=== PATIENT | female | born 1940 | race Hispanic/Latino ===

== ENCOUNTER 2020-10-26 10:25 | Emergency (ER) | payer MEDICARE ==
[2020-10-26 11:17] LABS: #Basophils 0.1 10x3/uL (0.0-0.2); #Eosinphils 0.1 10x3/uL (0.0-0.5); #Monocytes 0.5 10x3/uL (0.0-1.1); #Neutrophils 3.4 10x3/uL (1.5-8.4); %Basophils 1.3 % (0.0-2.0); %Eosinophils 1.3 % (0.0-6.0); %Neutrophils 63.8 % (40.0-75.0); Hemoglobin 13.6 g/dL (12.0-15.5); Mean Corpuscular HGB CONC 34.2 g/dL (32.0-36.0); Mean Corpuscular Hemoglobin 31.8 pg (27.0-33.0); Mean Platelet Volume 9.2 fl (7.4-10.4); Platelet Count 142 10x3/uL (150-450); RBC Distribution Width 13.8 % (11.5-14.5); Red Blood Cell (RBC) Count 4.28 10x6/uL (3.90-5.03); White Blood Cell (WBC) Count 5.3 10x3/uL (3.5-10.5)
[2020-10-26 11:27] LABS: ALT (SGPT) 17 U/L (8-55); AST (SGOT) 29 U/L (5-34); Albumin 4.1 g/dL (3.4-4.8); Alkaline Phosphatase 153 U/L (40-110); Anion Gap 18 mmol/L (10-20); BUN (Urea Nitrogen) 25 mg/dL (9.8-20.1); Bilirubin, Total 0.8 mg/dL (0.2-1.2); Calc. Creatinine Clearance 0 mL/min (70-130); Calcium 9.6 mg/dL (7.8-10.44); Carbon Dioxide 26 mmol/L (23-31); Chloride 96 mmol/L (98-107); Globulin 4.6 g/dL (2.4-3.5); Glucose 155 mg/dL (83-110); Potassium 3.9 mmol/L (3.5-5.1); Protein, Total 8.7 g/dL (5.8-8.1); Sodium 136 mmol/L (136-145)
[2020-10-26 13:48] LABS: Bilirubin Neg (Negative); Blood, Urine 50 (Negative); Clarity Cloudy (Clear); Glucose, Urine (Dipstick) 250 mg/dL (Negative); Ketone, Urine 5 mg/dL (Negative); Leukocyte 500 (Negative); Nitrite Negative (Negative); Protein, Urine (Dipstick) 100 mg/dl (Neg-Trace); Specific Gravity, Urine 1.025 (1.002-1.036); Urobilinogen Normal mg/dL (Less than 2)
[2020-10-26] MEDS ORDERED: cefTRIAXone\\ROCEPHIN 1 GM VIAL ONE (14:03)
[2020-10-26 14:11] LABS: Squamous Epithelial 0-3 HPF (0-3); WBC/HPF Greater than 50 HPF (0-3)
[2020-10-26 14:14] LABS: Bacteria/HPF 4+ HPF (None Seen); Mucous/LPF Rare LPF (<2+)
== END 2020-10-26 15:30 | disposition home or self-care (01) ==
LOC: CSHERS 10:25
DX: N30.00 Acute cystitis without hematuria (principal); I25.10 Atherosclerotic heart disease of native coronary artery without angina pectoris; E11.22 Type 2 diabetes mellitus with diabetic chronic kidney disease; I12.0 Hypertensive chronic kidney disease with stage 5 chronic kidney disease or end stage renal disease; N18.6 End stage renal disease; Z99.2 Dependence on renal dialysis
CPT/HCPCS: 36415; 51701; 70450; 71045; 80053; 81003; 81015; 82140; 82553; 84484; 85025; 87077; 87086; 87186; 93005; 96365; J0696

== ENCOUNTER 2022-07-07 08:05 | Outpatient (CLI) | payer OTHER | END 2022-07-07 08:06 | disposition home or self-care (01) | LOC: CSHULT 08:05 | PROVIDERS: ATTEND Physician Assistant Medical | DX: K74.69 Other cirrhosis of liver (principal); K76.82 Hepatic encephalopathy; K76.9 Liver disease, unspecified; N26.1 Atrophy of kidney (terminal); N28.9 Disorder of kidney and ureter, unspecified | CPT/HCPCS: 76705 ==

== ENCOUNTER 2024-01-29 10:41 | Emergency (ER) | payer OTHER ==
[2024-01-29 11:29] LABS: #Basophils 0.04 10x3/uL (0.0-0.2); #Monocytes 0.36 10x3/uL (0.0-1.1); #Neutrophils 2.68 10x3/uL (1.5-8.4); %Eosinophils 2.4 % (0.0-6.0); %Lymphocytes 23.7 % (18.0-47.0); %Monocytes 8.6 % (0.0-10.0); %Neutrophils 64.1 % (40.0-75.0); Hematocrit 40.3 % (34.9-44.5); Hemoglobin 13.5 g/dL (12.0-15.5); Mean Corpuscular HGB CONC 33.5 g/dL (32.0-36.0); Mean Corpuscular Hemoglobin 30.5 pg (27.0-33.0); Mean Corpuscular Volume 91.2 fL (81.6-98.3); Mean Platelet Volume 10.2 fL (7.4-10.4); Platelet Count 82 10x3/uL (150-450); RBC Distribution Width 18.6 % (11.5-14.5); Red Blood Cell (RBC) Count 4.42 10x6/uL (3.90-5.03); White Blood Cell (WBC) Count 4.2 10x3/uL (3.5-10.5)
[2024-01-29 11:35] LABS: ALT (SGPT) 19 U/L (8-55); AST (SGOT) 38 U/L (5-34); Albumin 2.9 g/dL (3.4-4.8); Alkaline Phosphatase 155 U/L (40-110); Anion Gap 17 mmol/L (10-20); BUN (Urea Nitrogen) 22 mg/dL (9.8-20.1); Bilirubin, Total 1.1 mg/dL (0.2-1.2); Calc. Creatinine Clearance 0 mL/min (70-130); Calcium 8.9 mg/dL (7.8-10.44); Carbon Dioxide 27 mmol/L (23-31); Chloride 99 mmol/L (98-107); Estimated GFR 8; Globulin 4.1 g/dL (2.4-3.5); Glucose 88 mg/dL (83-110); Sodium 139 mmol/L (136-145)
[2024-01-29] MEDS ORDERED: Aspirin Chewable 81 MG TAB ONE (12:56)
[2024-01-29] MEDS ORDERED: Metoprolol Tartrate 5 MG (5 mL) VIAL ONE (12:56)
== END 2024-01-29 16:20 | disposition short-term general hospital (02) ==
LOC: CSHERS 10:41
DX: K76.82 Hepatic encephalopathy (principal); I48.91 Unspecified atrial fibrillation; E11.22 Type 2 diabetes mellitus with diabetic chronic kidney disease; N18.6 End stage renal disease; I13.2 Hypertensive heart and chronic kidney disease with heart failure and with stage 5 chronic kidney disease, or end stage renal disease; I50.9 Heart failure, unspecified; Z99.2 Dependence on renal dialysis
CPT/HCPCS: 36415; 36416; 80053; 82140; 85025; 93005